=== PATIENT | male | born 1965 | race Caucasian/White ===

== ENCOUNTER 2017-05-22 11:46 | Observation (INO) | payer OTHER ==
[2017-05-22] MEDS ORDERED: Sodium Chloride 0.9% 10 ML Syringe FLUSH PRN (11:48)
--- NOTE | 2017-05-22 12:13 | EDM.PDOC ---
ED HPI GENERAL MEDICAL PROBLEM - General Chief Complaint: Syncope Stated Complaint: syncope Time Seen by Provider: 05/22/17 11:55 Source of Information: Reports: Patient, EMS History Limitations: Reports: Altered Mental Status, Combative/Threatening - History of Present Illness INITIAL COMMENTS - FREE TEXT/NARRATIVE: brought in by ambulance after syncopal episode. It was reported by EMS that patient and his son were shopping and his son heard him fall in the next aisle, the fall was not witnessed. no seizure activity noted, but he was incontinent of stool. Initially when EMS arrived he was confused, combative, and uncooperative, they were unable to obtain any health information, or do any sort of medical care. On arrival to ER patient was more alert and able to answer medical questions. he does not recall how he was feeling prior to the episode. He has a past medical hx of HTN. Denies nausea, vomiting, SOB, chest pain, fever, chills. Onset: Today, Sudden Associated Symptoms: Reports: Confusion, Diaphoresis, Syncope - Related Data Allergies Allergy/AdvReac Type Severity Reaction Status Date / Time lisinopril Allergy Wheezing Verified 05/22/17 12:55 venom-honey bee Allergy Swelling Verified 05/22/17 12:55 [bee venom (honey bee)] Home Meds: Home Meds Diltiazem HCl [Diltiazem 24Hr Cd] 300 cap PO DAILY 02/22/14 [History] Hydrochlorothiazide/Losartan [Hyzaar 50-12.5 MG] 1 tab PO DAILY 02/22/14 [ History] Acetaminophen [Tylenol Extra Strength] 1,000 mg PO Q6H PRN 05/18/16 [History] Multivitamin [Multi-Vitamin Daily] 1 each PO DAILY 05/18/16 [History] PARoxetine HCl [Paxil] 30 mg PO DAILY 05/18/16 [History] Social & Family History - Tobacco Use Years of Tobacco use: 10 ED ROS GENERAL - Review of Systems Review Of Systems: ROS reveals no pertinent complaints other than HPI. - Physical Exam Exam: See Below Exam Limited By: No Limitations General Appearance: Alert, No Apparent Distress Eye Exam: Bilateral Eye: EOMI, PERRL Head Exam: Normocephalic, Scalp Abrasions (right forehead. ) Neck: Normal Inspection, Supple, Non-Tender, Full Range of Motion Respiratory/Chest: No Respiratory Distress, Lungs Clear, Normal Breath Sounds, No Accessory Muscle Use, Chest Non-Tender Cardiovascular: Normal Peripheral Pulses, Regular Rate, Rhythm, No Edema, No Gallop, No JVD, No Murmur, No Rub GI/Abdominal: Normal Bowel Sounds, Soft, Non-Tender, No Distention Neuro Exam (Abbreviated): Alert, Oriented, Normal Reflexes, No Motor/Sensory Deficits Back Exam: Normal Inspection Extremities: Normal Inspection, Normal Range of Motion, Non-Tender Skin Exam: Warm, Diaphoretic, Ecchymosis (right upper back) EKG INTERPRETATION EKG Date: 05/22/17 Time: 12:20 Rhythm: NSR Rate (Beats/Min): 99 [place]: Normal P-Wave: Present QRS: Normal ST-T: Normal QT: Normal Course - Vital Signs Last Recorded V/S: Last Vital Signs Temp 36.3 C 05/22/17 11:50 Pulse 80 05/22/17 14:36 Resp 16 05/22/17 14:36 BP 179/105 H 05/22/17 14:36 Pulse Ox 95 05/22/17 11:50 - Orders/Labs/Meds Orders: Active Orders 24 hr Category Date Time Status Patient Status [ADT] Routine ADT 05/22/17 14:38 Ordered EKG Documentation Completion [RC] STAT Care 05/22/17 11:48 Active Head wo Cont [CT] Stat Exams 05/22/17 11:48 Taken Sodium Chloride 0.9% [Normal Saline] 1,000 ml Med 05/22/17 12:30 Active IV ASDIRECTED Sodium Chloride 0.9% [Saline Flush] Med 05/22/17 11:48 Active 10 ml FLUSH ASDIRECTED PRN Saline Lock Insert [OM.PC] Routine Oth 05/22/17 11:48 Ordered Medication Orders Sodium Chloride (Normal Saline) 1,000 mls @ 1,000 mls/hr IV ASDIRECTED LOKI Last Admin: 05/22/17 12:44 Dose: 1,000 mls/hr Sodium Chloride (Saline Flush) 10 ml FLUSH ASDIRECTED PRN PRN Reason: Keep Vein Open Labs: Laboratory Tests 05/22/17 05/22/17 Range/Units 12:24 12:24 WBC 6.2 (4.0-10.0) x10^3/uL RBC 4.66 (4.5-6.0) x10^6/uL Hgb 15.0 (14.0-18.0) g/dL Hct 43.0 (40.0-52.0) % MCV 92.3 (78.0-93.0) fL MCH 32.2 H (26.0-32.0) pg MCHC 34.9 (32.0-36.0) g/dL RDW Coeff of Abiel 13.8 (10.0-15.0) % Plt Count 110 L (130-400) x10^3/uL Neut % (Auto) 55.7 (50.0-80.0) % Lymph % (Auto) 29.4 (25.0-50.0) % [place] % (Auto) 10.7 (2.0-11.0) % Eos % (Auto) 3.4 (0.0-4.0) % Baso % (Auto) 0.8 (0.2-1.2) % Sodium 142 (136-145) mmol/L Potassium 3.7 (3.5-5.1) mmol/L Chloride 105 (98-107) mmol/L Carbon Dioxide 23 (21-32) mmol/L BUN 14 (7-18) mg/dL Creatinine 1.1 (0.70-1.30) mg/dL Est Cr Clr Drug Dosing TNP Estimated GFR (MDRD) > 60 Glucose 109 H (74-106) mg/dL Calcium 8.7 (8.5-10.1) mg/dL Corrected Calcium 8.70 (8.5-10.1) mg/dL Total Bilirubin 0.6 (0.2-1.0) mg/dL AST 52 H (15-37) U/L ALT 83 H (16-63) U/L Alkaline Phosphatase 88 (46-116) U/L Creatine Kinase 268 (39-308) U/L Troponin I < 0.017 (<=0.056) ng/mL Total Protein 7.8 (6.4-8.2) g/dL Albumin 4.0 (3.4-5.0) g/dL Globulin 3.8 Albumin/Globulin Ratio 1.05 Meds: Medications Generic Name Dose Route Start Last Admin Trade Name Freq PRN Reason Stop Dose Admin Sodium Chloride 1,000 mls @ 1,000 mls/hr 07/31/17 12:30 05/22/17 12:44 Normal Saline IV 1,000 mls/hr ASDIRECTED LOKI Administration Sodium Chloride 10 ml 05/22/17 11:48 Saline Flush FLUSH ASDIRECTED PRN Keep Vein Open - Radiology Interpretation CT Results Date: 05/22/17 - Re-Assessments/Exams Free Text/Narrative Re-Assessment/Exam: 05/22/17 14:47 patient up to bathroom after receiving IV bolus. he denies any dizziness, but feels weak. denied headache, sob, chest pain. His blood pressure was elevated after getting up at 179/105. Departure - Departure Time of Disposition: 15:00 Disposition: Refer to Observation Condition: Good Clinical Impression: Syncope Qualifiers: Syncope type: unspecified Qualified Code(s): R55 - Syncope and collapse Hypertension Qualifiers: Hypertension type: essential hypertension Qualified Code(s): I10 - Essential ( primary) hypertension - Discharge Information - Problem List & Annotations (1) Syncope SNOMED Code(s): 057619671 Code(s): R55 - SYNCOPE AND COLLAPSE Status: Acute Priority: High Current Visit: Yes Qualifiers: Syncope type: unspecified Qualified Code(s): R55 - Syncope and collapse (2) Hypertension SNOMED Code(s): 42552257 Code(s): I10 - ESSENTIAL (PRIMARY) HYPERTENSION Status: Acute Priority: Medium Current Visit: Yes Qualifiers: Hypertension type: essential hypertension Qualified Code(s): I10 - Essential (primary) hypertension - My Orders Last 24 Hours: My Active Orders 05/22/17 11:48 EKG Documentation Completion [RC] STAT Head wo Cont [CT] Stat Sodium Chloride 0.9% [Saline Flush] 10 ml FLUSH ASDIRECTED PRN Saline Lock Insert [OM.PC] Routine 05/22/17 12:30 Sodium Chloride 0.9% [Normal Saline] 1,000 ml IV ASDIRECTED 05/22/17 14:38 Patient Status [ADT] Routine - Assessment/Plan Last 24 Hours: My Active Orders 05/22/17 11:48 EKG Documentation Completion [RC] STAT Head wo Cont [CT] Stat Sodium Chloride 0.9% [Saline Flush] 10 ml FLUSH ASDIRECTED PRN Saline Lock Insert [OM.PC] Routine 07/31/17 12:30 Sodium Chloride 0.9% [Normal Saline] 1,000 ml IV ASDIRECTED 05/22/17 14:38 Patient Status [ADT] Routine Plan: admit to observation
[2017-05-22] MEDS ORDERED: Sodium Chloride 0.9% 1,000 ML IV SCH (12:30)
[2017-05-22 12:55] LABS: CHLORIDE,CL 105 mmol/L (98-107); SODIUM,NA 142 mmol/L (136-145)
[2017-05-22] MEDS ORDERED: Acetaminophen 325 MG Tab PO PRN (14:57)
[2017-05-22] MEDS: Sodium Chloride 0.9% 1,000 ML IV SCH (15:38)
[2017-05-22] MEDS ORDERED: Losartan 50 MG Tab PO ONE (17:24)
[2017-05-22] MEDS ORDERED: Hydrochlorothiazide 12.5 MG Cap PO ONE (17:24)
[2017-05-22] MEDS: Meclizine 25 MG Tab PO SCH (20:25)
--- NOTE | 2017-05-22 22:29 | PCM.SN ---
- Free Text/Narrative Note: as hospital stay went on patient did notify nursing staff that he has not been taking his hyzaar for awhile because it causes him to have leg cramps. His also notified nursing staff that patient drinks on a daily basis between 10 -18 beers. He has not been drinking for the last 4 days because his son is visiting. these factors could very well be the cause of his syncopal episode today.
[2017-05-23] MEDS: Sodium Chloride 0.9% 1,000 ML IV SCH (01:26)
[2017-05-23] MEDS: Meclizine 25 MG Tab PO SCH (07:46)
[2017-05-23] MEDS ORDERED: Losartan 50 MG Tab PO SCH (08:00)
[2017-05-23] MEDS ORDERED: DILTIAZEM HCL PO SCH (08:00)
[2017-05-23] MEDS ORDERED: PAROXETINE HCL 30 MG PO SCH (08:00)
[2017-05-23] MEDS ORDERED: Hydrochlorothiazide 12.5 MG Cap PO SCH (08:00)
[2017-05-23] MEDS ORDERED: Non-Formulary Medication 1 Each (Hydrochlorothiazide/Losartan 1 TAB) PO SCH (08:00)
--- NOTE | 2017-05-23 09:37 | PCM.DCSUM1 ---
Discharge Summary - Hospital Course Free Text/Narrative:: Patient admitted yesterday post syncopal episode. HPI Initial Comments: Patient was shopping with his son when he did pass out and fall on the floor. It was unwitnessed. No seizure activity was noted. After admission it was noted that he drinks 10-18 beers per day, has not been taking his Hyzarr either. He has not been drinking over the last 4 days while his son is here. There may be some withdrawal symptoms associated with this. Brief History: Patient was shopping with his son when he did pass out and fall on the floor. It was unwitnessed. No seizure activity was noted. After admission it was noted that he drinks 10-18 beers per day, has not been taking his Hyzarr either. He has not been drinking over the last 4 days while his son is here. There may be some withdrawal symptoms associated with this. He has been cooperative while in the hospital. - Discharge Data Discharge Date: 05/23/17 Discharge Disposition: Home, Self-Care 01 Condition: Good - Patient Summary/Data Hospital Course: Patient did have a complete cardiac work up here which proved to be negative. CT of the head did not show any acute hemorrhage from his syncopal episode. No seizure activity. - Patient Instructions Diet: Heart Healthy Diet Activity: As Tolerated - Discharge Plan Home Medications: Home Meds Diltiazem HCl [Diltiazem 24Hr Cd] 300 mg PO DAILY 02/22/14 [History] Hydrochlorothiazide/Losartan [Hyzaar 50-12.5 MG] 1 tab PO DAILY 02/22/14 [ History] Acetaminophen [Tylenol Extra Strength] 1,000 mg PO Q6H PRN 05/18/16 [History] Multivitamin [Multi-Vitamin Daily] 1 each PO DAILY 05/18/16 [History] PARoxetine HCl [Paxil] 30 mg PO DAILY 05/18/16 [History] Omeprazole 20 mg PO DAILY 05/22/17 [History] Forms: ED Department Discharge Referrals: Jarek Lindsey MD [Primary Care Provider] - - Discharge Summary/Plan Comment DC Time >30 min.: Yes Discharge Summary/Plan Comment: You should stop drinking. This was likely a factor in your fainting episode yesterday, as was not taking your high blood pressure medication. If that medicine gives you unwanted side effects, let your primary doctor know so changes can be made. Continue your current regimen of medications. Follow up with your primary doctor to review your medications, drinking habits and any other questions or concerns you may have. You may also need to have an echocardiogram and stress test to rule out any cardiac involvement that may have caused your fainting spell. A neurology consult is also sometimes pursued to rule out any type of causes neurologically. - General Info Date of Service: 05/23/17 Admission Dx/Problem (Free Text: syncope Functional Status: Reports: Pain Controlled, Tolerating Diet, Ambulating, Urinating - Review of Systems General: Reports: No Symptoms HEENT: Reports: No Symptoms Pulmonary: Reports: No Symptoms Cardiovascular: Reports: No Symptoms Gastrointestinal: Reports: No Symptoms Genitourinary: Reports: No Symptoms Musculoskeletal: Reports: No Symptoms Skin: Reports: No Symptoms Neurological: Reports: No Symptoms Psychiatric: Reports: No Symptoms - Patient Data Vitals - Most Recent: Last Vital Signs Temp 37.5 C 05/23/17 05:40 Pulse 66 05/23/17 05:40 Resp 10 L 05/23/17 05:40 BP 169/85 H 05/23/17 05:40 Pulse Ox 97 05/23/17 05:40 Weight - Most Recent: 104.054 kg I&O - Last 24 hours: Intake & Output 05/22/17 05/23/17 05/23/17 22:59 06:59 14:59 Intake Total 731 1606 180 Balance 731 1606 180 Lab Results - Last 24 hrs: Laboratory Results - last 24 hr 05/22/17 05/22/17 05/22/17 Range/Units 17:09 17:09 23:06 Magnesium 2.3 (1.8-2.4) mg/dL Creatine Kinase 497 H* (39-308) U/L Troponin I 0.031 0.023 (<=0.056) ng/mL Med Orders - Current: Current Medications Acetaminophen (Tylenol) 650 mg PO Q4H PRN PRN Reason: analgesia/fever Last Admin: 05/22/17 17:52 Dose: 650 mg Hydrochlorothiazide (Hydrochlorothiazide) 12.5 mg PO DAILY [facility] Last Admin: 05/23/17 07:46 Dose: 12.5 mg Sodium Chloride (Normal Saline) 1,000 mls @ 100 mls/hr IV ASDIRECTED LOKI Last Admin: 05/23/17 01:26 Dose: 100 mls/hr Meclizine HCl (Antivert) 25 mg PO TID [facility] Last Admin: 05/23/17 07:46 Dose: 25 mg Non-Formulary Medication (Diltiazem Hcl) 300 cap PO DAILY [facility] Last Admin: 05/23/17 09:09 Dose: Not Given Non-Formulary Medication (Paroxetine Hcl [Paxil]) 30 mg PO DAILY [facility] Last Admin: 05/23/17 09:10 Dose: Not Given Sodium Chloride (Saline Flush) 10 ml FLUSH ASDIRECTED PRN PRN Reason: Keep Vein Open Discontinued Medications Hydrochlorothiazide (Hydrochlorothiazide) 12.5 mg PO NOW ONE Stop: 05/22/17 17:25 Last Admin: 05/22/17 17:50 Dose: 12.5 mg Sodium Chloride (Normal Saline) 1,000 mls @ 1,000 mls/hr IV ASDIRECTED [facility] Last Admin: 05/22/17 12:44 Dose: 1,000 mls/hr Losartan Potassium (Cozaar) 50 mg PO DAILY [facility] Losartan Potassium (Cozaar) 50 mg PO NOW ONE Stop: 05/22/17 17:25 Last Admin: 05/22/17 17:51 Dose: 50 mg Non-Formulary Medication (Hydrochlorothiazide/Losartan) 1 tab PO DAILY [facility] - Exam General: Reports: Alert, Oriented, Cooperative, No Acute Distress HEENT: Reports: Pupils Equal, Pupils Reactive, EOMI Neck: Reports: Supple Lungs: Reports: Clear to Auscultation, Normal Respiratory Effort Cardiovascular: Reports: Regular Rate, Regular Rhythm GI/Abdominal Exam: Normal Bowel Sounds, Soft, Non-Tender, No Organomegaly, No Distention Back Exam: Reports: Normal Inspection Extremities: Normal Inspection, Normal Range of Motion, Non-Tender, No Pedal Edema, Normal Capillary Refill Skin: Reports: Warm, Dry, Intact Neurological: Reports: No New Focal Deficit Psy/Mental Status: Reports: Alert, Normal Affect, Normal Mood *Q Meaningful Use (DIS) - VTE *Q VTE Criteria *Q: - Stroke *Q Stroke Criteria *Q: - AMI *Q AMI Criteria *Q:
[2017-05-23 10:05] VITALS: BP 154/76
== END 2017-05-23 10:00 | disposition home or self-care (01) ==
LOC: VM.ED 11:46 → VM.MS 14:38
PROVIDERS: ADMIT Nurse Practitioner Family; ATTEND Nurse Practitioner Family
DX: R55 Syncope and collapse (principal); I10 Essential (primary) hypertension; F32.9 Major depressive disorder, single episode, unspecified; Z88.8 Allergy status to other drugs, medicaments and biological substances; Z91.030 Bee allergy status; Z79.899 Other long term (current) drug therapy; Z90.49 Acquired absence of other specified parts of digestive tract
CPT/HCPCS: 36415; 70450; 80053; 82550; 83735; 84484; 85025; 93005; 96360; 96361; 99285; A9270; J7030; G0378

== ENCOUNTER 2024-07-26 10:33 | Emergency (ER) | payer MEDICARE ==
[2024-07-26] MEDS: Famotidine 20 MG Tab PO SCH (11:00)
[2024-07-26] MEDS: hydrOXYzine HCl 25 MG Tab PO SCH (11:00)
[2024-07-26 11:17] VITALS: BP 160/95; PULSE 84
== END 2024-07-26 11:49 | disposition home or self-care (01) ==
LOC: VM.ED 10:33
DX: R21 Rash and other nonspecific skin eruption (principal); T39.395A Adverse effect of other nonsteroidal anti-inflammatory drugs [NSAID], initial encounter; I10 Essential (primary) hypertension; Z90.49 Acquired absence of other specified parts of digestive tract; Z79.899 Other long term (current) drug therapy; Z88.1 Allergy status to other antibiotic agents; Z91.030 Bee allergy status; Z88.8 Allergy status to other drugs, medicaments and biological substances
CPT/HCPCS: 99283; A9270-GY